=== PATIENT | male | born 2000 | race Caucasian/White ===

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

== ENCOUNTER 2022-03-06 11:58 | Emergency (ER) | payer OTHER ==
[2022-03-06 12:06] VITALS: BP 108/66; PULSE 116; RESP 18; TEMP 99; BMI 24.7
== END 2022-03-06 14:26 | disposition home or self-care (01) ==
LOC: JER 11:58
DX: J09.X2 Influenza due to identified novel influenza A virus with other respiratory manifestations (principal)
CPT/HCPCS: 0241U-QW; 99283-25

== ENCOUNTER 2022-04-24 23:10 | Day surgery (SDC) | payer OTHER ==
[2022-04-25] MEDS ORDERED: LIDOCAINE HCL/PF 1% SDV 5ML VIAL ONE ×2 (01:27→02:08)
[2022-04-25] MEDS ORDERED: AMPICILLIN NA/SULBACTAM NA 3 GM in SODIUM CHLORIDE 100 ML IVPB ONE (02:20)
[2022-04-25] MEDS ORDERED: ACETAMINOPHEN 1000 MG/100 ML BAG IVPB ONE (02:21)
[2022-04-25] MEDS ORDERED: ACETAMINOPHEN INJECTION 100 ML IVPB ONE (02:59)
[2022-04-25 03:23] LABS: BASO % 0.3 % (0-2.0); HEMATOCRIT 39.7 % (35.4-49); HEMOGLOBIN 13.8 GM/dL (11.7-16.9); LYMPH % 10.1 % (8-40); MCH 31.5 pg (25.7-33.7); MCHC 34.7 g/dl (32.0-35.9); MEAN CELL VOLUME 90.8 fl (80-96); MEAN PLT VOLUME 8.3 fl (7.5-11.1); MONO % 8.4 % (3.8-10.2); NEUT % 80.2 % (42.8-82.8); PLATELET COUNT 193 10^3/uL (134-434); RBC 4.37 M/mm3 (4.00-5.60); RDW 13.2 % (11.9-15.9); WHITE BLOOD COUNT 10.2 K/mm3 (4.0-10.0)
[2022-04-25 03:42] LABS: CALCIUM 9.2 mg/dL (8.5-10.1)
[2022-04-25 03:43] LABS: ALBUMIN 4.2 g/dl (3.4-5.0)
[2022-04-25 03:47] LABS: CREATININE 0.8 mg/dL (0.55-1.3)
[2022-04-25 03:48] LABS: BILIRUBIN,TOTAL 0.7 mg/dL (0.2-1); TOT PROT 7.4 g/dl (6.4-8.2)
[2022-04-25] MEDS ORDERED: ACETAMINOPHEN 325 MG TABLET (FP) PO PRN (04:18)
[2022-04-25] MEDS: SODIUM CHLORIDE 1,000 ML IV SCH (05:41)
[2022-04-25] MEDS ORDERED: PIPERACILLIN/TAZOB 3.375 GM 3.375 GM/50 ML BAG IVPB ONE (17:43)
[2022-04-25] MEDS: PIPERACILLIN/TAZOB 3.375 GM 3.375 GM in DEXTROSE 5%-WATER - 50 ML IVPB SCH (17:46)
[2022-04-25] MEDS ORDERED: CEFAZOLIN 1 GM in DEXTROSE 5%-WATER - 50 ML IVPB SCH (18:00)
[2022-04-26] MEDS: PIPERACILLIN/TAZOB 3.375 GM 3.375 GM in DEXTROSE 5%-WATER - 50 ML IVPB SCH ×3 (01:57→17:15)
[2022-04-26] MEDS: SODIUM CHLORIDE 1,000 ML IV SCH ×2 (10:23→22:25)
[2022-04-26 10:25] LABS: INR 1.24 (0.83-1.09); PROTHROMBIN TIME (PATIENT) 14.3 SEC (9.7-13.0)
[2022-04-26] MEDS ORDERED: BUPIVACAINE HCL/PF 0.5% (5MG/ML) 10 ML VIAL ONE (13:52)
[2022-04-26] MEDS ORDERED: GENTAMICIN SO4 80 MG/2 ML VIAL ONE (13:52)
[2022-04-26] MEDS ORDERED: LIDOCAINE HCL 1%, 10 MG/ML (20ML VIAL) ONE ×2 (13:52→14:58)
[2022-04-26] MEDS ORDERED: MIDAZOLAM HCL 2 MG/2 ML SINGLE DOSE VIAL ONE (14:23)
[2022-04-26] MEDS ORDERED: PROPOFOL 20 ML ONE ×2 (14:25→14:51)
[2022-04-26] MEDS ORDERED: BUPIVACAINE HCL/PF 0.5% (5 MG/ML) 30 ML VIAL IJ ONE (14:40)
[2022-04-26] MEDS ORDERED: LIDOCAINE HCL 1%, 10 MG/ML (50 mL VIAL) INF ONE ×2 (14:40)
[2022-04-26] MEDS ORDERED: GENTAMICIN SO4 80 MG/2 ML VIAL IVPB ONE (15:06)
[2022-04-26] MEDS ORDERED: ACETAMINOPHEN 1000 MG/100 ML BAG IVPB ONE ×2 (15:32→15:58)
[2022-04-26] MEDS ORDERED: ONDANSETRON 4 MG/2 ML VIAL IVPUSH PRN (15:32)
[2022-04-26] MEDS ORDERED: ACETAMINOPHEN INJECTION 100 ML IVPB ONE (15:54)
[2022-04-26] MEDS: LACTATED RINGERS SOLUTION 1,000 ML IV SCH (18:01)
[2022-04-26] MEDS: ACETAMINOPHEN 325 MG TABLET (FP) PO PRN (22:52)
[2022-04-26 23:22] VITALS: RESP 18
[2022-04-27] MEDS: PIPERACILLIN/TAZOB 3.375 GM 3.375 GM in DEXTROSE 5%-WATER - 50 ML IVPB SCH ×2 (01:35→09:04)
[2022-04-27] MEDS: LACTATED RINGERS SOLUTION 1,000 ML IV SCH ×2 (06:14→17:30)
[2022-04-27 08:46] LABS: HEMATOCRIT 34.8 % (35.4-49); HEMOGLOBIN 12.3 GM/dL (11.7-16.9); MCH 31.7 pg (25.7-33.7); MCHC 35.3 g/dl (32.0-35.9); MEAN CELL VOLUME 89.8 fl (80-96); MEAN PLT VOLUME 8.5 fl (7.5-11.1); PLATELET COUNT 170 10^3/uL (134-434); RBC 3.88 M/mm3 (4.00-5.60); WHITE BLOOD COUNT 4.4 K/mm3 (4.0-10.0)
[2022-04-27 09:08] LABS: CALCIUM 8.9 mg/dL (8.5-10.1)
[2022-04-27 09:11] LABS: CREATININE 0.7 mg/dL (0.55-1.3)
[2022-04-27] MEDS: AMOX TR/POT CLAV 875MG/125MG TABLETS (FP) PO SCH (17:29)
[2022-04-27] MEDS: SODIUM CHLORIDE 1,000 ML IV SCH (17:30)
[2022-04-27] MEDS: ACETAMINOPHEN 325 MG TABLET (FP) PO PRN (20:41)
[2022-04-28] MEDS: LACTATED RINGERS SOLUTION 1,000 ML IV SCH ×2 (02:42→16:49)
[2022-04-28] MEDS: AMOX TR/POT CLAV 875MG/125MG TABLETS (FP) PO SCH ×2 (08:07→16:49)
[2022-04-28 10:22] LABS: BLOOD UREA NITROGEN 8.1 mg/dL (7-18)
[2022-04-28 10:27] LABS: CREATININE 0.7 mg/dL (0.55-1.3)
[2022-04-28 11:10] VITALS: PULSE 69
[2022-04-28 16:05] VITALS: BP 97/50; TEMP 98.7
[2022-04-28 19:39] VITALS: BMI 18.5
== END 2022-04-28 18:06 | disposition home or self-care (01) ==
LOC: JERFT 23:10 → JERBED 04-25 02:25 → UNDOADMOB 04-25 02:25 → OBSVTOIN 04-25 04:15 → INTOOBSV 04-25 04:15 → JERBED 04-25 18:42 → J6S 04-25 18:42 → SUATTDRO 04-26 17:13 → JASUSAT 04-26 17:13 → J6S 04-26 17:14 → JASUSAT 04-28 18:06
PROVIDERS: ATTEND Internal Medicine
PROC: 0JCR0ZZ Extirpation of Matter from Left Foot Subcutaneous Tissue and Fascia, Open Approach (ICD-10-PCS; principal; 2022-04-26 14:30)
DX: S90.852A Superficial foreign body, left foot, initial encounter (principal); W25.XXXA Contact with sharp glass, initial encounter; Y93.9 Activity, unspecified; Y92.9 Unspecified place or not applicable
CPT/HCPCS: 0241U-QW; 36415; 73630-TC-LT; 76000-TC-FY; 80048; 80053; 85025; 85027; 85610; 86332; 86850; 86900; 86901; 87070; 87205; 88300-TC; 94760; 97116-GP; 97162-GP; 99285-25; G0378

== ENCOUNTER 2022-08-28 23:12 | Emergency (ER) | payer OTHER ==
[2022-08-28 23:17] VITALS: BP 102/65; PULSE 90; RESP 16; TEMP 98.6; BMI 19.3
[2022-08-29] MEDS ORDERED: DOXYCYCLINE HYCLATE 100 MG CAPSULE PO ONE ×2 (00:22→00:39)
[2022-08-29 00:44] LABS: BASO % 0.4 % (0-2.0); EOS % 2.5 % (0-4.5); HEMATOCRIT 43.2 % (35.4-49); LYMPH % 22.1 % (8-40); MCH 30.6 pg (25.7-33.7); MCHC 34.6 g/dl (32.0-35.9); MEAN CELL VOLUME 88.4 fl (80-96); PLATELET COUNT 167 10^3/uL (134-434); RBC 4.89 M/mm3 (4.00-5.60); RDW 13.1 % (11.9-15.9); WHITE BLOOD COUNT 4.8 K/mm3 (4.0-10.0)
== END 2022-08-29 01:30 | disposition home or self-care (01) ==
LOC: JER 23:12
DX: R21 Rash and other nonspecific skin eruption (principal); L51.9 Erythema multiforme, unspecified; R11.2 Nausea with vomiting, unspecified
CPT/HCPCS: 36415; 85025; 86618; 93005; 93010; 99284-25